=== PATIENT | male | born 1965 | race Caucasian/White ===

== ENCOUNTER 2020-02-15 15:01 | Outpatient (CLI) | payer MEDICARE ==
[~2020-02-15 15:01] MED LIST: Magnevist 469MG/ML 20 ML VIAL ONE
--- NOTE | 2020-02-15 19:11 | MRI ---
MRI LUMBAR SPINE WITH AND WITHOUT CONTRAST: DATE: 02/15/20 HISTORY: 54-year-old male with M54.5 - low back pain and leg pain. COMPARISON: 01/01/17 TECHNIQUE: Multiple sequences obtained in axial and sagittal planes, pre and post IV injection of gadolinium-bas ed contrast agent: Multihance FINDINGS: For the purposes of this report, it will be assumed that there are 5 lumbar-type vertebrae. The vert ebral body heights are maintained. What appears to be a dilated right extrarenal pelvis and at least mildly dilated right renal collecti ng system. Alternatively, these could represent parapelvic renal cysts. This is incompletely evaluate d, and is unchanged since the previous MRI. Again noted are the bridging osteophytes protruding into the prevertebral space at L3-4, L2-3, and L1-2. The anterior bridging osteophytes are especially larg e at L1-2, indenting and anteriorly slightly displacing the abdominal aorta. No bone marrow edema. No major spondylolisthesis. Mild kyphosis at L1-2. No high grade disc space luis e rowing at any level. Conus medullaris terminates at L1. The findings by individual levels are as follows: T12-L1: Tiny broad based left paracentral disc protrusion. Otherwise normal. L1-2: Minimal retrolisthesis of L1 on L2 associated with the mild kyphosis. Spinal canal, thecal sac, and neural foramina are generous in caliber. L2-3: Minimal retrolisthesis of L2 on L3. Minimal disc bulge. No central spinal canal stenosis. Poste rior epidural fat pad. Mild thecal sac stenosis. Generous caliber neural foramina bilaterally. L3-4: Minimal retrolisthesis of L3 on L4. Minimal disc bulge. Mild to moderate bilateral neural mónica inal stenosis. Bilateral mild to moderate facet DJD. No central spinal canal stenosis. L4-5: Generous caliber spinal canal and thecal sac. No significant right neural foraminal stenosis. M ild left neural foraminal stenosis. Mild disc bulge. Bilateral moderate facet DJD. There is left late ral and far lateral annular tear. L5-S1: Metallic cage material in the disc space. Anterior metallic plate with screws extending obliqu michael into the L5 and S1 vertebral bodies. Retrolisthesis of L5 on S1. Metallic hardware between spinou s processes. Generous caliber spinal canal and thecal sac. Postsurgical scar tissue at right lateral recess surrounding the right S1 nerve root, with circumferential thin rim enhancement. No central or neural foraminal stenosis. No significant interval change overall. IMPRESSION: 1. No interval change since 01/01/17. 2. Mild lumbar spondylosis, most notably moderate bilateral facet osteoarthrosis at L4-5. 3. No central spinal canal stenosis at any level. 4. No high grade neural foraminal stenosis at any level. 5. Status post anterior lumbar interbody fusion with hardware, and interspinous process device p lacement; at L5-S1. 6. Postsurgical scar tissue at right lateral recess at L5-S1. CLAU Richardson POS: KAY[facility]E
== END 2020-02-15 15:02 | disposition home or self-care (01) ==
LOC: BICMRI 15:01
PROVIDERS: ATTEND Physical Medicine & Rehabilitation
DX: M54.5 Low back pain (principal); M79.606 Pain in leg, unspecified; M47.816 Spondylosis without myelopathy or radiculopathy, lumbar region; Z98.1 Arthrodesis status
CPT/HCPCS: 72158; 82565; A9579